=== PATIENT | female | born 1980 | race Hispanic/Latino ===

== ENCOUNTER 2019-08-10 16:13 | Inpatient (IN) | payer OTHER ==
[2019-08-10] MEDS ORDERED: Ringers Lactate 1,000 ML IV ONE (17:04)
[2019-08-10] MEDS ORDERED: OXYTOCIN/LR 20 UNIT/1,000 ML BAG IV ONE (17:04)
[2019-08-10] MEDS ORDERED: Ringers Lactate 1,000 ML IV PRN (17:17)
[2019-08-10] MEDS ORDERED: CARBOPROST TROME 250 MCG/ML IM PRN ×2 (17:17→23:50)
[2019-08-10] MEDS ORDERED: PROMETHAZINE 25 MG/ML VIAL IV PRN (17:17)
[2019-08-10] MEDS ORDERED: METHYLERGONOVINE 0.2MG/ML AMP IM PRN ×2 (17:17→23:50)
[2019-08-10 17:20] LABS: Absolute Lymphocytes (CBC) 1.9 K/uL (0.7-4.9); Basophils % 0.3 % (0-1.3); Hematocrit 34.9 % (36.0-45.0); MPV 7.3 fL (7.6-11.3); RBC Red Blood Cell Count 4.23 M/uL (3.86-4.86)
[2019-08-10] MEDS ORDERED: BUTORPHANOL 1 MG/ML INJ IV ONE (17:20)
[2019-08-10 17:27] LABS: Urine Appearance CLOUDY; Urine Bilirubin NEGATIVE (NEG); Urine Blood NEGATIVE (NEG); Urine Color YELLOW; Urine Glucose NEGATIVE (NEG); Urine Protein NEGATIVE (NEG); Urine Specific Gravity 1.025 (1.005-1.030); Urine pH 5.5 (5.0-7.0)
--- NOTE | 2019-08-10 17:38 | P.PN ---
Date of Service: 08/10/19 FSE applied, clear fluid noted, will begin pitocin induction of labor. Cx 2 cm , 50% effaced, vtx, minus 1-minus 2 station.
[2019-08-10 17:56] LABS: Urine Bacteria >50 /HPF (<20); Urine Culture Reflex Order REFLEXED; Urine RBC <5 /HPF (NONE SEEN)
[2019-08-10] MEDS ORDERED: Ringers Lactate 1,000 ML IV SCH (18:00)
[2019-08-10] MEDS ORDERED: OXYTOCIN/LR 20 UNIT/1,000 ML BAG IV SCH ×2 (18:00→23:45)
[2019-08-10 18:31] VITALS: BMI 31.4
[2019-08-10] MEDS ORDERED: ROPIVACAINE HCL 20 ML ONE (20:26)
[2019-08-10] MEDS ORDERED: ROPIVACAINE HCL 100 ML IV ONE (20:26)
[2019-08-10] MEDS ORDERED: FENTANYL CITR 100 MCG/2 ML ONE (20:34)
--- NOTE | 2019-08-10 23:49 | P.BOP ---
Preoperative diagnosis: 39 wk , AMA Postoperative diagnosis: same, delivery viable male infant Primary procedure: SCVD male infant Secondary procedure: repair first degree periurethral laceration Estimated blood loss: Less than 200ml Anesthesia: epidural Complications: None Transferred to: Other ([id number]) Condition: Good
[2019-08-10] MEDS ORDERED: ONDANSETRON 4 MG (ODT) TAB PO PRN (23:50)
[2019-08-10] MEDS ORDERED: METHYLERGONOVINE 0.2 MG TAB PO PRN (23:50)
[2019-08-11 00:25] LABS: RPR (Rapid Plasma Reagin) NON-REACT (NON-REACT)
--- NOTE | 2019-08-11 07:40 | PREOPHP ---
Date of Admission: 08/10/2019 History Of Present Illness: Ms. Mcgarry is a 39-year-old female, 3, para 2-0-0-2 foll owed by me during this with complications of advanced maternal age, regular menses, smoking history. She is admitted at 39+ weeks gestation for induction of labor secondary to term with advanced maternal age and favorable cervix. Past Medical History: Please see record. Family History: Please see record. Review of Systems: She reports no recent cough, cold, fever, or chills. No recent nausea or vomiting. She denies any b reast lumps or breast knots. has been active. She denies any urinary symptoms or bowel compl aints. Physical Examination: General: Reveals a pleasant female, in no apparent distress. Neck: Supple without adenopathy or thyromegaly. Lungs: Clear. Cardiac: Regular rate and rhythm without murmurs. Breasts: Not examined. Abdomen: Estimated weight 8+ pounds. Pelvic: Cervix noted to be 2 cm dilated, 50% effaced vertex and -1 station. Extremities: No cyanosis, clubbing, or edema. Impression: A 39-week , advanced maternal age, favorable cervix. Plan: Patient will be admitted for induction. LUCINA/IRAJ Voice ID: [id number]
[2019-08-11] MEDS: IBUPROFEN 200 MG TAB PO PRN ×3 (08:15→21:27)
[2019-08-11] MEDS: ACETAMINOPHEN 500 MG TAB PO PRN ×2 (08:15→12:15)
--- NOTE | 2019-08-11 19:49 | OP ---
Surgeon: Lavelle Valverde MD Shakira is a 39-year-old female, 3, para 2-0-0-2 at 39+ weeks gestation. She has been followed by me during this without complication. She is admitted except for advanced mate rnal age. She is admitted for elective induction secondary to term with favorable cervix. After rupture of membranes, Pitocin induction of labor and placement of epidural catheter. She had a first stage of labor 5 hours and 58 minutes, second stage labor of 9 minutes. She delivered by spo ntaneous controlled vaginal delivery an 8 pounds 11 ounces male infant, 9 and 9 with a first de gree periurethral laceration. The infant delivered vertex OA. After delayed cord clamping, this was clamped, cut, and the infant placed on mother's upper abdomen. Cord blood was obtained. The placen ta was spontaneously expelled and appeared to be intact. Intrauterine exam revealed no retained plac ental fragments. The laceration was repaired with 2 simple sutures of 3-0 Vicryl. Estimated total b lood loss was less than 200 cc. The patient tolerated all procedures well. LUCINA/IRAJ Voice ID: [id number] Report ID: [id number]
[2019-08-12] MEDS: IBUPROFEN 200 MG TAB PO PRN (07:49)
--- NOTE | 2019-08-12 08:47 | DS ---
Final Hospital Discharge Diagnoses: 39+ week delivered, advanced maternal age, iron defici ency anemia. Complications: None. Procedures: Artificial rupture of membranes, Pitocin induction of labor, placement of epidural valeriy ter, spontaneous controlled vaginal delivery of viable male , repair of first-degree perineal l aceration. Hospital Course: The patient is a 39-year-old female, 3, para 2-0-0-2, del ivered an 8 pounds 11 ounce male infant, 9 and 9 with epidural anesthesia. She was dismissed o n the first day, ambulatory, on a select diet with routine post vaginal delivery activity restrictions, to be seen back in my office in 1 week. Lab work included an admission hemoglobin and hematocrit of 11.8 and 34.9, dismissal hematocrit of 31.5. She had a urinalysis possibly suspicious for bladder infection and will be reflexed, has nonreactive RPR and he is O-positive blood type. She was dismissed to continue taking her iron and vitamins. LUCINA/IRAJ Voice ID: [id number] Report ID: [id number]
[2019-08-12 10:27] VITALS: BP 128/73; TEMP 98.9
[2019-08-14 20:02] LABS: HBsAG Nonreactive (Nonreactive)
== END 2019-08-12 09:00 | disposition home or self-care (01) | DRG 807 ==
LOC: 2ND-WC 16:13
PROVIDERS: ADMIT Specialist; ATTEND Specialist
PROC: 10907ZC Drainage of Amniotic Fluid, Therapeutic from Products of Conception, Via Natural or Artificial Opening (ICD-10-PCS; principal; 2019-08-10)
PROC: 10E0XZZ Delivery of Products of Conception, External Approach (ICD-10-PCS; 2019-08-10)
PROC: 0HQ9XZZ Repair Perineum Skin, External Approach (ICD-10-PCS; 2019-08-10)
DX: O70.0 First degree perineal laceration during delivery (principal); Z37.0 Single live birth; Z3A.39 39 weeks gestation of pregnancy; O99.02 Anemia complicating childbirth
CPT/HCPCS: 36415; 81001; 85014; 85025; 86592; 86850; 86900; 86901; 87086; 87088; 87340; J2210; J2590; J2795; J3010